=== PATIENT | female | born 2000 | race Caucasian/White ===

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

== ENCOUNTER 2024-10-21 10:34 | Outpatient (CLI) | payer OTHER, MEDICAID, SELFPAY ==
--- OUTSIDE RECORDS SUMMARY | 2024-10-21 10:45 | XMS_ITS | Clinical Summary ---
Author Organization [facility] Address [address] [place] [address] Phone Care Team Providers Care Event Sales Manager Name Role Phone Luke Olson MD Primary Care Provider [phone] Allergies No known active allergies Medications hydrOXYzine HCl (ATARAX) 25 mg tablet Take 1 Tablet (25 mg) by mouth 2 times daily. 60 Tablet 02/09/2019 Active Active Problems Problem Noted Date Diagnosed Date Marijuana use 02/02/2019 Intentional drug overdose 02/02/2019 Marijuana use 02/02/2019 Severe episode of recurrent major depressive disorder, without psychotic features 04/27/2018 Encounter for routine child health examination without abnormal findings 04/27/2018 Depression Family History Medical History Relation Name Comments Diabetes Father Healthy Mother Relation Name Status Comments Father Alive Mother Alive Social History Tobacco Use Types Packs/Day Years Used Date Smoking Tobacco: Never Smokeless Tobacco: Never Alcohol Use Standard Drinks/Week Comments No 0 (1 standard drink = 0.6 oz pur e alcohol) Adolescent Education Answer Date Record ed Getting School Help Needed Not on file 09/28 Comments Unknown Sex and Gender Information Value Date Recorded Sex Assigned at Not on file Legal Sex Female 5:28 PM ORACLE SECURITY CONSULTANT Gender Identity Not on file Sexual Orientation Not on file Last Filed Vital Signs Vital Sign Reading Time Taken Comments Blood Pressure 111/59 02/08/2019 8:14 AM ORACLE SECURITY CONSULTANT Pulse 91 02/08/2019 8:14 AM ORACLE SECURITY CONSULTANT Temperature 36.9 C (98.5 F) 02/08/2019 8:14 AM ORACLE SECURITY CONSULTANT Respiratory Rate 16 02/08/2019 8:14 AM ORACLE SECURITY CONSULTANT Oxygen Saturation 100% 02/08/2019 8:14 AM ORACLE SECURITY CONSULTANT Inhaled Oxygen Concentration - - Weight 43.9 kg (96 lb 12.8 oz) 02/04/2019 8:14 A M ORACLE SECURITY CONSULTANT Height 160 cm (5' 3) 02/03/2019 3:10 PM ORACLE SECURITY CONSULTANT Body Mass Index 17.15 02/03/2019 3:10 PM ORACLE SECURITY CONSULTANT Plan of Treatment Health Maintenance Due Date Last Done Comments CHLAMYDIA SCREENING (ANNUAL) 11-24 YEARS 2013 DTAP/TDAP/TD VACCINES (5 - Tdap) 2013 01/08/2005, 07/03/2003, 05/02/2003, Additional history exists HPV VACCINES (1 - 3-dose series) 2017 CERVICAL CANCER SCREENING 12/30/2023 HPV/Cotest (21-29) 12/30/2023 PAP SMEAR 12/30/2023 INFLUENZA VACCINE (#1) 2024 7, 01/08/2005, 02/07/2004, Additional history exists HEPATITIS B VACCINES Completed 01/08/2005, 05/02/2003, 03/01/2003 Insurance [employer] BLUE [employer]/TRUE BLUE PPO [employer]/TRUE BLUE PPO BCBS BLUE ACCESS/TRUE BLUE PPO Advance Directives For more information, please contact: [phone] * Full Code (Latest Code Status on File) Date Activated Date Inactivated Comments 02/03/2019 8:03 PM 02/08/2019 6:57 PM * Full Code Date Activated Date Inactivated Comments 04/27/2018 12:13 AM 04/30/2018 4:34 PM Care Teams Event Sales Manager Relationship Specialty Start Date End Date Luke Olson MD PCP - General Pediatrics 02/02/19
--- OUTSIDE RECORDS SUMMARY | 2024-10-21 10:45 | XMS_ITS | Continuity of Care Document ---
Author Name [facility] Organization [facility] Care Team Providers Care Electrician Second Name Role Phone [facility] Unavailable Unavailable Procedures Combined list of: 1) Procedures from [facility] facilities [facility], not all [place] non-surgical procedures are included; 2) All procedures from the Department of [facility] facilities. Procedure Procedure Type Code Date Perfomer Comments Sourc e No data available for this section Ambulatory P harmacy Social History Combined list of available smoking, tobacco, and other social history from Department of Defense and Veterans Affairs facilities. Social History Type Response Date Comment Sourc e Sex Representation Female (finding) 09/08/2023 Unknown Organization Sexual Orientation Ambula tory Pharmacy Gender identity Ambulator y Pharmacy Assessment and Plan Combined list of future care activities from Department of Defense and Veterans [facility] facilities (e.g., assessment and plan notes, appointments, orders, and referrals). Additional future care activities may be listed in the Plan of Care section. Result Assessment and Plan Date Source Assessment and Plan No data available for this section 10/21/2024 Ambulatory Pharmacy Functional Status Combined list of recent functional and cognitive assessments recorded at Department of Defense and [facility] Affairs ([place]).[facility] Functional [place] Measurement (FIM) Scale: 1 = Total Assistance (Subject = 0% +), 2 = Maximal Assistance (Subject = 25% +), 3 = Moderate Assistance (Subject = 50% +), 4 = Minimal Assistance (Subject = 75% +), 5 = Supervision, 6 = Modified Montcalm (Device), 7 = Complete [place]m (Timely, Safely). Assessment Date/Time Source Assessment Type Assessment Skill Assessment Score Assessment Details No data available for this section
[2024-10-21 10:57] VITALS: BP 111/70; PULSE 86
[2024-10-21 11:00] VITALS: BP 110/64; PULSE 90
[2024-10-21 11:30] VITALS: BP 110/71; PULSE 87
[2024-10-21 11:31] VITALS: BP 110/71; PULSE 87
[2024-10-21 11:44] LABS: OBXCEM ROM Plus Negative (Negative)
== END 2024-10-21 11:45 | disposition home or self-care (01) ==
LOC: ANHOBOP 10:42 → ANHOBPP 10:46
PROVIDERS: PCP Family Medicine; Visit Provider Obstetrics & Gynecology
DX: O41.8X90 Other specified disorders of amniotic fluid and membranes, unspecified trimester, not applicable or unspecified (principal)
CPT/HCPCS: 59025; 84112; 99199

== ENCOUNTER 2024-11-13 05:10 | Observation (INO) | payer OTHER, MEDICAID, SELFPAY ==
[2024-11-13 05:25] VITALS: BP 118/75; PULSE 86
[2024-11-13 05:30] VITALS: BP 122/72; PULSE 92
[2024-11-13 05:39] VITALS: BMI 24.4
--- NOTE | 2024-11-13 05:40 | OBADM ---
This patient, Dimple Henry, admitted to the OB room Labor/Delivery/Recovery 105 for observation. Patient/family oriented to hospital policies and general routines including ID bracelet, bed and alarms, visiting hours, pain management, procedures, bathroom and other care routines, personal items, smoking policy, room service/diet, and visiting hours. Patient/Family are encouraged to report perceived risks to care and to ask questions if they do not understand what they are told or what they should do.
[2024-11-13 05:45] VITALS: BP 114/71; PULSE 90
[2024-11-13 07:49] LABS: Add Urine Microscopic? YES; Appearance Urine Clear (Clear); Glucose Urine UA Negative (Negative); Leukocyte Esterase Ur 1+ LEU/UL (Negative); Need Manual Microscopic Reviewed; Nitrate Urine Negative (Negative); Non Pathogenic Casts 0-2; Specific Grav Ur 1.011 (1.001-1.035)
[2024-11-13 08:11] VITALS: BMI 24.5
--- NOTE | 2024-11-15 09:43 | PM.OBTRLD ---
OB - Triage/Final Diagnosis Visit Information Comments/Additional reasons for admission: I have assessed the risk for this patient, Dimple Henry, and determined that she would benefit from observation care. Evaluation Laboratory results: Laboratory Tests 11/13/24 07:16 Urine Color Yellow Urine Appearance Clear Urine pH 7.0 Ur Specific [place] 1.011 Urine Protein Negative Urine Glucose (UA) Negative Urine Ketones Negative Ur Blood (Man) 2+ H Urine Nitrate Negative Urine Bilirubin Negative Urine Urobilinogen 0.2 Add Ur Microanalysis Reviewed Leukocyte Esterase Rfl 1+ H Urine RBC 0-2 Urine WBC 0-5 Ur Squamous Epith Cells Occasional Urine Bacteria None seen Urine Casts 0-2 Final Diagnosis (1) Irregular contractions: Code(s): O47.9 - False labor, unspecified Status: Acute
== END 2024-11-13 08:05 | disposition home or self-care (01) ==
PROVIDERS: Obstetrics & Gynecology; Admitting Provider Obstetrics & Gynecology; PCP Family Medicine; Visit Provider Obstetrics & Gynecology
DX: O47.1 False labor at or after 37 completed weeks of gestation (principal); Z3A.39 39 weeks gestation of pregnancy
CPT/HCPCS: 81001; 87086; G0378; G0379

== ENCOUNTER 2024-11-13 21:52 | Inpatient (IN) | payer OTHER, MEDICAID, SELFPAY ==
[2024-11-13] VITALS (7 sets, daily range): BP systolic 113–132; BP diastolic 69–91; PULSE 83–95; BMI 23.4
--- OUTSIDE RECORDS SUMMARY | 2024-11-13 22:23 | XMS_ITS | Clinical Summary ---
Author Organization [facility] Address [address] [place] [address] Care Team Providers Care Kick Boxer Name Role Phone Luke Olson MD Primary Care Provider [phone] Source Comments [facility],non-owned Affiliates and Associated Physician Practices is amultiple site organization consisting of ambulatory clinics and hospital sitesin [place], [place], [place] and [place]. This disclosure is being madepursuant to the Care Everywhere program and may not contain all information available regarding this patient. Last updated 17.[facility] [employer] Allergies No known active allergies Medications * This document contains information received from the source organization and may not represent a complete record from that organization. * Be aware that medications may not be up to date on this document. Alwaysverify current medications with the patient. fluticasone propionate (FLONASE) 50 MCG/ACT nasal spray Davis 2 Sprays into each nostril once daily 1 Bottle 1 7 Active cyanocobalamin (VITAMIN B-12) 100 MCG tablet Take 100 mcg by mouth once daily Active Cholecalciferol (VITAMIN D3) 400 UNITS tablet Take 400 Units by mouth once daily Active NEXPLANON 68 MG implant 8 Active ferrous gluconate 324 (38 FE) MG tablet Take 324 mg by mouth once daily Active desogestrel-eth inyl estradiol (ORTHO-CEPT; DESOGEN; APRI; SOLIA; RECLIPSEN) 0.15-30 MG-MCG tabletIndicatio ns:Abnormal Uterine Bleeding Take 1 tablet by mouth once daily Reasons: Symptomatic Variation from Normal Periods 3 packet 0 Active Active Problems Problem Noted Date Diagnosed Date Depression 04/25/2019 Assessment & Plan (04/25/2019 11:11 AM BUNCH BREAKER MACHINE OPERATOR): Recent suicide attempt in 01/2019, hospitalized at [facility] for 1 week. Not currently on medication. Has therapist but haven't seen in 2 months. Denies SI, current self harm, or suicide plan. Weight stable. Mom and patient report improvement in mood and functioning. Patient does endorse ongoing anxiety/depression but much improved. Plan Encourage therapist regularly Discussed healthy eating habits and coping mechanisms Routine screening for STI (sexually transmitted infection) 04/13/2018 Dysmenorrhea 07/13/2017 Assessment & Plan (04/25/2019 11:09 AM BUNCH BREAKER MACHINE OPERATOR): Ongoing increased break through bleeding, lasts 2 weeks bleeding per month. Previously improved while combining Nexplanon and OCPs. Plan Plan to restart OCPs with Nexplanon Monitor for break through bleeding Nexplanon insertion 07/13/2017 Assessment & Plan (07/13/2017 9:44 AM CDT): Here for nexplanon insertion. Negative test today. Reports compliance with OCPs. LMP onset today. Follow-up in 2-3 months. Dysphagia 11/07/2016 Resolved Problems Problem Noted Date Diagnosed Date Resolved Date Infectious mononucleosis 11/07/201603/2019 Assessment & Plan (11/09/2016 6:57 AM CDT): Assessment: Pt with recent diagnosis of infectious mononucleosis with recent systemic steroid administration. Although systemic steroids can be very helpful short term in decreasing inflammation secondary to mononucleosis, they have significant side effects. Plan: -d/c prednisone - consider flonase (might be helpful in topical effects and very unlikely to be harmful) -contact isolation -avoid contact sports - monitor for signs/symptoms of airway obstruction - Vitals q8h - Regular diet as tolerated - ENT following, appreciate recommendations - Recommend holding Prednisone for 24 hours to monitor for improvement off of steroids (to prove antibiotic susceptibility) - Ibuprofen scheduled for pain - Tylenol, oxy, morphine for breakthrough Assessment & Plan (11/08/2016 1:43 PM CDT): Assessment: Diagnosed at PCP's office. Atypical lymphocytes on CBC at admission. Concern for superimposed bacterial infection leading to phlegmon development. Plan: - Regular diet as tolerated - ENT following, appreciate recommendations - Recommend holding Prednisone for 24 hours to monitor for improvement off of steroids (to prove antibiotic susceptibility) - Ibuprofen scheduled for pain - Tylenol, oxy, morphine for breakthrough Tonsillitis, phlegmonous 11/07/201603/2019 Assessment & Plan (11/09/2016 6:52 AM CDT): Assessment: Dimple Mendez is a 15yo girl with hx of recurrent tonsillitis and recent diagnosis of infectious mononucleosis presenting with progressively worsening dysphagia and left neck swelling. Dx studies studies significant for bilateral tonsilitis, cervical lymphadenopathy, and a left palatine tonsil phlegmon. Bacterial superinfection most likely with considerations including GAS, staph aureus, oral anaerobes. Polymicrobial infection also possible. Infectious mononucleosis alone also a consideration. Pt at risk for abscess formation with requirement for surgical incision and drainage. She is also at risk for worsening airway obstruction. Pt followed by ENT and hospitalized due to need for IV antibiotics, IVF, pain medication, and possible surgical intervention. Plan: - Continue IV Clindamycin 13mg/kg TID, convert to oral when showing clinical improvement for 14 day total course. - Pt pt does not improve, would consider clindamycin resistant staph aureus (30% of MRSA marlen well as about 20% of other Staph per antibiogram) and addition of vancomycin or linezolid. Would also consider abscess formation - To follow up in ENT clinic to discuss potential tonsillectomy - MIVF, decrease as PO intake improves - Ibuprofen scheduled Q6hrs; Tylenol, oxycodone, morphine prn for pain. If pt continues to have significant pain, plan on scheduling tylenol and consider scheduling oxycontin - Throat lozenges prn, chloraseptic prn - Encourage fluids - Zofran 4mg q6 prn for nausea Assessment & Plan (11/08/2016 1:49 PM CDT): Assessment: Dimple Mendez is a 15yo female with tonsillitis complicated by concern for phlegmon/developing abscess. She is +[place] at her PCP's office with high atypical lymphocytes on CBC on admission, but worsening status, unilateral swelling, and fluid collection seen on CT raises concern for secondary bacterial infection. Patient feels she is improving on antibiotics but concomitant treatment with steroids may cloud the picture. Clindamycin provides empiric coverage for Group A Streptococcus, S. Aureus, and respiratory anaerobes. It is worth noting that about 30% of MRSA can be resistant to Clindamycin, as well as about 20% of other Staph. If she were to fail to improve on Clindamycin within 24-48 hours, would consider adding to antibiotic regime to provide coverage against resistant Staph, such as Linezolid which provides near 100% Staph coverage, including MRSA, per antibiogram. Plan: - Continue IV Clindamycin 13mg/kg TID, convert to oral when showing clinical improvement for 14 day total course - Reg diet as tolerated - MIVF, decrease as PO intake improves - ENT following, appreciate recommendations - Recommend holding prednisone to evaluate for improvement off steroids - Ibuprofen scheduled Q6hrs; Tylenol, oxycodone, morphine prn for pain - Throat lozenges prn, chloraseptic prn - Encourage fluids - Zofran 4mg q6 prn for nausea - Vitals q8h - To follow up in ENT clinic to discuss potential tonsillectomy Assessment & Plan (11/07/2016 11:21 PM CDT): Assessment: Dimple Mendez is a 15yo female with recurrent tonsillitis presenting with tonsillitis complicated by concern for phlegmon/developing abscess. She has been tested positive for [place] at her PCP's office (consistent with high atypical lymphocytes on CBC), but worsening status and fluid collection seen on CT raises concern for secondary bacterial infection. Clindamycin would provide empiric coverage for Group A Streptococcus, S. Aureus, and respiratory anaerobes. It is worth noting that about 30% of MRSA can be resistant to Clindamycin, as well as about 20% of other Staph. If she were to fail to improve on Clindamycin within 24-48 hours, would consider adding to antibiotic regime to provide coverage against resistant Staph, such as Linezolid which provides near 100% Staph coverage, including MRSA, per antibiogram. Plan: - Admit to Pediatrics, Dr. Campbell - Start IV Clindamycin 13mg/kg TID, convert to oral when showing clinical improvement for 14 day total course - Reg diet as tolerated, NPO at midnight with mIVF - ENT following, agree to reevaluate tomorrow - Prednisone 50mg daily - Tylenol prn for mild pain - Oxycodone 5mg PO q4h for moderate pain - Morphine 2.5mg IV q4h for severe pain - Zofran 4mg q6 prn for nausea - Vitals q8h - To follow up in ENT clinic to discuss potential tonsillectomy Immunizations Immunization Administration Dates Next Due INFLUENZA VACCINE, QUADR. (F LUZONE; FLULAVAL; FLUARIX; AFLURIA QUADRIVALENT; 6MO+), 0.5 ML (IIV4) 11/09/2016 Family History Medical History Relation Name Comments Diabetes Father Depression Mother Menstrual issues Sister DUB Relation Name Status Comments Father Mother Sister Social History Tobacco Use Types Packs/Day Years Used Date Smoking Tobacco: Former Cigarettes Q uit: 06/23/2018 Smokeless Tobacco: Never Alcohol Use Standard Drinks/Week Comments Not Currently 0 (1 standard drink = 0.6 oz pure alcohol) tried once, did not like it, does not use etoh Comments No Sex and Gender Information Value Date Recorded Sex Assigned at Not on file Legal Sex Female 1:30 PM CDT Gender Identity Not on file Sexual Orientation Not on file Last Filed Vital Signs Vital Sign Reading Time Taken Comments Blood Pressure 110/70 04/25/2019 9:45 AM BUNCH BREAKER MACHINE OPERATOR Pulse 76 05/04/2017 9:59 AM CDT respiration 20 Temperature 36.7 C (98 F) 01/26/2017 12:37 PM BUNCH BREAKER MACHINE OPERATOR Respiratory Rate 20 01/26/2017 2:40 PM BUNCH BREAKER MACHINE OPERATOR Oxygen Saturation 96% 01/26/2017 2:4 0 PM BUNCH BREAKER MACHINE OPERATOR Inhaled Oxygen Concentration - - Weight 51.1 kg (112 lb 10.5 oz) 04/25/2019 9:45 AM BUNCH BREAKER MACHINE OPERATOR Height 161 cm (5' 3.39) 04/25/2019 9:4 5 AM BUNCH BREAKER MACHINE OPERATOR Body Mass Index 19.71 04/25/2019 9:45 AM BUNCH BREAKER MACHINE OPERATOR Plan of Treatment Health Maintenance Due Date Last Done Comments HIV SCREENING 2017 HPV VACCINE (1 - 3-dose series) 2017 MENINGOCOCCAL (Group B) VACCINE SHARED DECISION-MAKING (1 of 2 - Standard) 2018 CHLAMYDIA/GONORRHEA SCREENING 04/13/2019 04/13/2018, 05/04/2017 HEPATITIS C SCREENING 12/24/2020 DTAP/TDAP/TD VACCINES (1 - Tdap) 2021 HEPATITIS B VACCINE (1 of 3 - 19+ 3-dose series) 2021 DEPRESSION SCREENING 02/24/2024 COVID-19 VACCINE (1 - season) 2024 INFLUENZA VACCINE (#1) 2024 7, 01/08/2005, 02/07/2004, Additional history exists ZOSTER VACCINE (1 of 2) 2052 HIB VACCINE Aged Out No longer eligi ble based on patient's age to complete this topic MENINGOCOCCAL GROUPS A/C/Y/W VACCINE Aged Out No longer eligible based on patient's age to complete this topic PNEUMOCOCCAL VACCINE Aged Out No long er eligible based on patient's age to complete this topic Procedures Procedure Name Priority Date/Time Associated Diagnosis Comments CHLAMYDIA + GC AMPLIFIED PROBE Routine 04/13/2018 4:30 PM BUNCH BREAKER MACHINE OPERATOR Routine screening for STI (sexually transmitted infection) from Last 3 Months or Most Recently Relevant to Health Maintenance Results * CHLAMYDIA + GC AMPLIFIED PROBE (04/13/2018 4:30 PM BUNCH BREAKER MACHINE OPERATOR) Chlamydia Amplified Probe Negative Negative 04/14/2018 11:45 AM BUNCH BREAKER MACHINE OPERATOR [facility] GC Amplified Probe Negative Negative 04/14/2018 11:45 AM BUNCH BREAKER MACHINE OPERATOR [facility] Urine URINE / Unknown Collection / Unknown 04/13/2018 4:30 PM BUNCH BREAKER MACHINE OPERATOR 04/13/2018 4:48 PM BUNCH BREAKER MACHINE OPERATOR Narrative [facility] - 04/14/2018 11:45 AM BUNCH BREAKER MACHINE OPERATOR Results based on detection/no detection of ribosomal RNA by amplified method. us Yessica Harrison MD LAB - MICROBIOLOGY ORD ERABLES Final Result [facility] [address] [place], [place] [address], [facility] [phone] from Last 3 Months or Most Recently Relevant to Health Maintenance Insurance ANTHEM ANTHEM Advance Directives * Full Code (Latest Code Status on File) Date Activated Date Inactivated Comments 11/07/2016 6:22 PM 11/09/2016 12:18 PM Care Teams Kick Boxer Relationship Specialty Start Date End Date Luke Olson MD [address] [place] [id number] PCP - General Pediatrics 09/07/15
--- OUTSIDE RECORDS SUMMARY | 2024-11-13 22:23 | XMS_ITS | Clinical Summary ---
Author Organization [facility] Address [address] [place] [address] Phone Care Team Providers Care Grid Inspector Name Role Phone Luke Olson MD Primary Care Provider [phone] Allergies No known active allergies Medications hydrOXYzine [...] on file Legal Sex Female 5:28 PM MANAGER IMAGING Gender Identity Not on file Sexual Orientation Not on file Last Filed Vital Signs Vital Sign Reading Time Taken Comments Blood Pressure 111/59 02/08/2019 8:14 AM MANAGER IMAGING Pulse 91 02/08/2019 8:14 AM MANAGER IMAGING Temperature 36.9 C (98.5 F) 02/08/2019 8:14 AM MANAGER IMAGING Respiratory Rate 16 02/08/2019 8:14 AM MANAGER IMAGING Oxygen Saturation 100% 02/08/2019 8:14 AM MANAGER IMAGING Inhaled Oxygen Concentration - - Weight 43.9 kg (96 lb 12.8 oz) 02/04/2019 8:14 A M MANAGER IMAGING Height 160 cm (5' 3) 02/03/2019 3:10 PM MANAGER IMAGING Body Mass Index 17.15 02/03/2019 3:10 PM MANAGER IMAGING Plan of Treatment Health Maintenance Due Date Last Done Comments CHLAMYDIA SCREENING (ANNUAL) 11-24 YEARS 2013 DTAP/TDAP/TD VACCINES (5 - Tdap) 2013 01/08/2005, 07/03/2003, 05/02/2003, Additional history exists HPV VACCINES (1 - 3-dose series) 2017 CERVICAL CANCER SCREENING 12/30/2023 HPV/Cotest (21-29) 12/30/2023 PAP SMEAR 12/30/2023 INFLUENZA VACCINE (#1) 2024 7, 01/08/2005, 02/07/2004, Additional history exists HEPATITIS B VACCINES Completed 01/08/2005, 05/02/2003, 03/01/2003 Insurance [employer] BLUE [employer]/TRUE BLUE PPO [employer]/TRUE BLUE PPO [employer] BLUE ACCESS/TRUE BLUE PPO Advance Directives For more information, please contact: [phone] * Full Code (Latest Code Status on File) Date Activated Date Inactivated Comments 02/03/2019 8:03 PM 02/08/2019 6:57 PM * Full Code Date Activated Date Inactivated Comments 04/27/2018 12:13 AM 04/30/2018 4:34 PM Care Teams Grid Inspector Relationship Specialty Start Date End Date Luke Olson MD PCP - General Pediatrics 02/02/19
[2024-11-13] MEDS: AMPICILLIN SODIUM 2 GM in SODIUM CHLORIDE 0.9% IV 100 ML 200 ML IVPB (23:00)
[2024-11-13] MEDS: LACTATED RINGERS 1,000 ML 125 ML IV CONT (23:00)
[2024-11-13 23:42] LABS: Hematocrit 32.4 % (37.0-47.0); Hemoglobin 10.3 g/dL (12.0-15.0); Immature Granulocyte Percent A 0.5 % (0-0.5); Lymphocytes Absolute Auto 1.72 K/mm3 (0.9-3.2); Mean Corpuscular HGB Conc 31.8 g/dl (32-36); Mean Corpuscular Hemoglobin 26.1 pg (26-34); Mean Corpuscular Volume 82.0 fl (80-100); Nucleated Red Blood Cells Absolute Auto 0.000 K/mm3 (0.0-0.012); Nucleated Red Blood Cells Perc 0.0 % (0.0-0.2); Platelet Count Result 310 k/mm3 (150-375); Red Blood Count 3.95 M/mm3 (4.2-5.4); White Blood Count 11.0 K/mm3 (4.5-10.0)
[2024-11-14] VITALS (148 sets, daily range): BP systolic 98–154; BP diastolic 52–97; PULSE 51–124; RESP 16–20; TEMP 36.5–37.3; O2SAT 80–100
--- NOTE | 2024-11-14 00:03 | P.PNAN_ITS ---
Anes - Eval Pre Procedure Procedure: Labor epidural Date/Time: 11/14/24 00:03 Surgeon: Mario Preop Diagnosis: pain during labor Pre Op Diagnosis: Contractions Patient Data Age: 23 Gender: F Height: 1.6 m Weight: 60 kg Last Vital Signs Pulse 95 11/14/24 00:00 BP 118/66 11/14/24 00:00 Home Medications ?Medication ?Instructions ?Recorded ?Confirmed ?Type bolvmkskqz-yxufsjqosvkel-aqbqaprv cap 11/13/24 Histor y 50 mg-300 mg-40 mg capsule vit no.95-ferrous 1 tablet PO DAILY 11/13/24 11/13/24 History fumarate 28 mg-folic acid 800 mcg tablet () Laboratory Tests 11/13/24 23:26 WBC 11.0 H K/mm3 (4.5-10.0) RBC 3.95 L M/mm3 (4.2-5.4) Hgb 10.3 L g/dL (12.0-15.0) Hct 32.4 L % (37.0-47.0) MCV 82.0 fl (80-100) MCH 26.1 pg (26-34) MCHC 31.8 L g/dl (32-36) RDW 12.6 % (11.5-14.5) Plt Count 310 k/mm3 (150-375) MPV 9.4 fl (7.4-10.4) Immature Gran % (Auto) 0.5 % (0-0.5) Neut % (Auto) 74.1 H % (45.5-73.1) Lymph % (Auto) 15.6 L % (18.3-44.2) [place] % (Auto) 9.1 H % (2.6-8.5) Eos % (Auto) 0.5 % (0-4.4) Baso % (Auto) 0.2 % (0.2-1.2) Lymph # (Auto) 1.72 K/mm3 (0.9-3.2) [place] # (Auto) 1.0 H K/mm3 (0.1-0.6) Eos # (Auto) 0.1 K/mm3 (0-0.3) Baso # (Auto) 0.0 K/mm3 (0.0-0.1) Abs Immat Gran (auto) 0.05 H K/mm3 (0.00-0.031) Absolute Neuts (auto) 8.2 H K/mm3 (1.3-6.7) Absolute Nucleated RBC 0.000 K/mm3 (0.0-0.012) Nucleated RBC % 0.0 % (0.0-0.2) Patient hx anesthesia problems: none Family hx anesthesia problems: none Results Review: All pre-operative results and documents have been reviewed as part of the pre- operative evaluation. [facility] Social History Social History Smoking status: Former smoker Tobacco type: e-cigarettes/vaping Smoking end date: 11/14/23 Lack of Transportation: No Lack of Food: Never True Current Housing: I Have Housing Concerned About Future Housing: No Difficulty Paying Gas/Electric Bills: No Difficulty Paying for Meds: No Currently Unemployed: No Education: High School Diploma/GED Difficulty w/ Childcare or Family Care: No Spiritual care concerns: No Exam Day of Procedure 11/14/24 00:03
[2024-11-14 00:16] LABS: Syphilis IgG/IgM Antibody Non-Reactive (Nonreactive)
[2024-11-14] MEDS: LACTATED RINGERS 1,000 ML 125 ML IV CONT ×2 (02:12→06:20)
[2024-11-14] MEDS: AMPICILLIN SODIUM 1 GM in SODIUM CHLORIDE 0.9% IV 50 ML 100 ML IVPB ×2 (03:37→07:59)
[2024-11-14] MEDS: OXYTOCIN 30 UNITS/NS 500 ML 30 UNITS/500 ML BAG 999 UNITS IV CONT (08:39)
[2024-11-14] MEDS: OXYTOCIN 30 UNITS/NS 500 ML 30 UNITS/500 ML BAG 125 UNITS IV CONT (09:12)
[2024-11-14] MEDS: ACETAMINOPHEN 325 MG TABLET 650 MG PO (10:36)
--- NOTE | 2024-11-14 11:43 | PC.NURSE ---
Patient transferred to post room #287 via wheelchair. Support person present. Oriented to unit, room, information board, rooming in, admission packet and security measures. Patient verbalizes understanding.
--- NOTE | 2024-11-14 12:00 | PC.NURSE ---
Patient requested formula bottles when admitted to the unit. Enfamil was taken to patient and she states that she doesn't know if baby 'got anything' at the first . Educated patient on feedings in the first 24 hours of life and about normal behavior. Patient is supported to give formula to baby if desired and she was educated on the appropriate amounts to feed. She is also advised that stimulating her breasts every 3 hours is required for establishing an abundant milk supply. Patient knows that she can do this by putting baby to breast or pumping. Patient agrees to call out for any needed feeding assistance. Primary RN updated.
[2024-11-14] MEDS: IBUPROFEN 600 MG TABLET PO ×2 (12:30→22:10)
--- NOTE | 2024-11-14 13:10 | PM.OBPRVD ---
OB - Vaginal Delivery Note Procedure Delivery date: 11/14/24 Induction method: None Delivery monitor: External FHT and External Uterine Route of delivery: Episiotomy description: None Laceration Description: Perineal - 1st Degree Delivery repair: vicryl Specimen: No Quantitative Blood Loss (ml): 200 Anesthesia type: Epidural Disposition: Floor Complications: No immediate complications Narrative: See H&P and notes for details on patient's admission and labor. She progressed to complete cervical dilation and at the appropriate time began pushing. With adequate expulsive efforts by the mother, the baby's head was delivered without difficulty. Nuchal cord was not present. The baby's right shoulder was anterior and delivered under the pubic symphysis without difficulty. The posterior shoulder and the rest of the baby delivered without difficulty. The umbilical cord was doubly clamped and cut after 60 seconds of delayed cord clamping. Care of the infant was then assumed by the nursing staff. Baby Date of : 11/14/24 Gestational Age by Date: 38 Infant gender: Male presentation: vertex position: Left Occiput Anterior Placenta delivery description: Expressed Cord Vessel Description: 3 Vessels and Delayed Cord Clamping
--- NOTE | 2024-11-14 13:20 | PC.NURSE ---
1320: Patient called out for feeding assistance. She was unable to get infant latched. He was swaddled when I entered the room so we removed some of the blanket and attempted to rouse him to feed. He was very sleepy and we were unable to elicit a gape or latch. Mom is encouraged to hold baby skin to skin for 15 minutes and then we will attempt to feed again. Primary RN updated. 1350: Patient holding baby skin to skin but he did not awaken. We took him from mom's chest and stimulated him to wake. He did cry and thrust his tongue a few times, but when placed at breast he gave minimal effort. Mom uses cradle and cross cradle hold with assistance from RN to hold infant's head. Baby gave a few attempts to gape but would not suck when the nipple was in his mouth. When stimulated he would fuss and then sleep. Mom is offered the option to wait a little longer and attempt again or to give formula if she desires. She would like to wait and try again. Primary RN updated.
--- NOTE | 2024-11-14 15:10 | PC.NURSE ---
Assisted patient to attempt . Baby was still sleeping and mom was educated on checking infant blood glucose if he has not eaten in 6 hours. Patient agrees to try to feed him again now. Baby is more alert after a diaper change and gives some good effort to latch. He is a tongue sucker and needs a lot of encouragement to open wide. He has given some good suckles when latched but mostly he holds the nipple in his mouth without sucking. We tried both breasts and mom used breast compression and hand expression to get some drops of colostrum in baby's mouth. Encouraged mom that he is looking more interested now than the last time we tried and that he may wake up soon and decide he wants to eat. She is continuing to hold him near the breast to offer it when he seems ready. Primary RN updated.
[2024-11-15 05:22] LABS: Hematocrit 28.5 % (37.0-47.0); Hemoglobin 8.8 g/dL (12.0-15.0)
[2024-11-15 07:50] VITALS: BP 118/76; PULSE 92; RESP 16; TEMP 36.8; O2SAT 100
[2024-11-15] MEDS: MULTIVIT/MIN/PREN/FOL AC/IRON TABLET 1 TAB PO (08:25)
[2024-11-15] MEDS: DOCUSATE SODIUM 100 MG CAPSULE PO ×2 (08:25→17:26)
[2024-11-15] MEDS: IBUPROFEN 600 MG TABLET PO ×2 (08:31→17:26)
--- NOTE | 2024-11-15 09:52 | P.PNOB_ITS ---
OB - PN: Subj Subjective Date/time seen: 11/15/24 09:52 Interval history: PPD#1 s/p Doing well, pain controlled Voiding without issue Mood ok, having some up and down emotions Tolerating general diet OB - PN: Obj Data Labs 11/15/24 03:12 Labs: Laboratory Results - last 24 hr 11/15/24 03:12 Hgb 8.8 L Hct 28.5 L OB - PN A/P Assessment and Plan (1) (spontaneous vaginal delivery): Code(s): O80 - Encounter for full-term uncomplicated delivery Status: Acute Plan day: 1 Plan: routine care Time Spent With Patient Time: Total time spent is greater than 50% in coordination of care (as documented) at patient's floor/unit and/or counseling patient: Review of Systems 2 Review of Systems: All systems reviewed & are unremarkable except as noted in HPI and below Exam 2 Const: General: comfortable and no acute distress O rientation/consciousness: patient oriented x3 Resp: Effort & Inspection: normal respiratory effort
--- NOTE | 2024-11-15 12:58 | PCCCNOTE ---
Care Coordination. Patient referred to CC for suicide attempt during and being tearful here. Spoke with pt. and FOB at bedside. Pt. reports history of depression, but reports suicide attempt was a long time ago, not during this . She has not been able to take antidepressant during . OBGYN plans to see pt. about a week after dc to checkin on post . Pt. reports yesterday she was emotional, but feeling good today after sleep. Pt. reports having good family support and plans to return home with her family at [place] with baby. She reports having all necessary baby care items and has been in contact with WIC. Provided pt. with education and discussion around post including resources and crisis hotelines for it. Provided pt. with counseling and baby care items as well. Provided baby basket full of baby care items. No further CC needs identified.
--- NOTE | 2024-11-15 14:06 | WPDANLDPN2 ---
Anes-Prog Note L&D Date/Time: 11/15/24 14:06 Comfortable throughout: labor and delivery Neuraxial method: epidural Epidural/Spinal procedure site: clean & non-tender Neuro status: Neuro function grossly intact. Cardiovascular status: normal Respiratory status: normal Airway patency: baseline Mental status: baseline Post-Op hydration status: normal Vital Signs: Last Vital Signs Temp 36.8 C 11/15/24 07:50 Pulse 92 11/15/24 07:50 Resp 16 11/15/24 07:50 BP 118/76 11/15/24 07:50 Pulse Ox 100 11/15/24 07:50 O2 Del Method Room Air 11/14/24 19:22 Pain score (VAS): 03/04 Post-procedural complaints: none Patient feedback: Patient satisfied with anesthetic care.
--- NOTE | 2024-11-15 16:37 | PC.NURSE ---
1520. Mom decided that she would like to pump and feed instead of . Breast pump provided due to moms preference. Instructions given on cleaning, care, usage, that there should be no pain, pumping schedule for milk production, collection, and storage of human milk. Patient was assessed for correct placement, flange size, to pump for comfort and nipple stretching/stimulation for adequate milk production every 3 hours (8 times in 24 hours) 1-2 times at night. Parents are encouraged to record the pumping schedule on the feeding sheet.?Mother voiced understanding of the education shared along with mom/baby guide and the pump measurement, flange fit handout for additional resource information. Reported to the Primary RN.
[2024-11-15 19:06] VITALS: BP 114/72; PULSE 89; RESP 16; TEMP 36.8; O2SAT 99
[2024-11-16 07:43] VITALS: BP 128/86; PULSE 91; RESP 18; TEMP 36.7; O2SAT 100
--- NOTE | 2024-11-16 08:19 | PC.NURSE ---
On 11/16/24, the student, Rhonda Washburn, provided care and completed [facility] documentation on this patient. I have reviewed the student's documentation and agree with the findings.
[2024-11-16] MEDS: MULTIVIT/MIN/PREN/FOL AC/IRON TABLET 1 TAB PO (08:52)
[2024-11-16] MEDS: DOCUSATE SODIUM 100 MG CAPSULE PO (08:53)
--- NOTE | 2024-11-16 10:54 | P.PNOB_ITS ---
OB - PN: Subj Subjective Date/time seen: 11/16/24 10:54 Interval history: PPD#2 s/p Doing well, pain controlled Voiding without issue Mood stable Tolerating general diet Ready for discharge home OB - PN: Obj Data Labs 11/15/24 03:12 OB - PN A/P Assessment and Plan (1) (spontaneous vaginal delivery): Code(s): O80 - Encounter for full-term uncomplicated delivery Status: Acute Plan day: 2 Plan: routine care and discharge home Time Spent With Patient Time: Total time spent is greater than 50% in coordination of care (as documented) at patient's floor/unit and/or counseling patient: Review of Systems 2 Review of Systems: All systems reviewed & are unremarkable except as noted in HPI and below Exam 2 Const: General: comfortable and no acute distress O rientation/consciousness: patient oriented x3 Resp: Effort & Inspection: normal respiratory effort
--- NOTE | 2024-11-16 10:56 | PM.OBDSVD ---
DS: Admitting Diagnosis Discharge Date 11/16/24 Admitting Diagnosis labor DS: Discharge Diagnosis Discharge Diagnosis (1) (spontaneous vaginal delivery): Code(s): O80 - Encounter for full-term uncomplicated delivery Status: Acute OB - DS: Summary OB Procedures : None OB Procedures Intrapartum: Spontaneous Vag Delivery OB Procedures: : None Peripartum Data Laceration Description: Perineal - 1st Degree Episiotomy description: None Time Spent with Patient Time attestation: Total time spent providing and/or coordinating discharge services: Discharge Plan Discharge Attending physician on discharge: Tanner Martin Discharging Clinician: Tanner Martin Patient Disposition: Home Activity: may shower, as tolerated and pelvic rest Diet: as tolerated Patient Instructions: Antibiotic Form Patient Language: Tunisian Stand Alone Forms: General Discharge Information Follow-up/Referrals: Tanner Martin MD [Physician, PROCESS TECHNICIAN] - 1 Week Discharge Medications: New ibuprofen 600 mg Tablet 600 mg PO Q6H PRN (Reason: Cramping) Qty: 30 0RF Continued hjtagmxxet-dahdkiseianot-lgwi 50-300-40 mg capsule PNV no.95-ferrous fumarate-FA [] 28 mg iron- 800 mcg tablet 1 tablet PO DAILY Date of admission: 11/13/24 21:52 Primary Care Provider: Becky,Edward Santoyo Admitting Provider: Tanner Martin Attending physician on admission: Tanner Martin Condition: Stable
[2024-11-17 13:57] VITALS: BP 106/67; PULSE 88; RESP 18; TEMP 37.1; O2SAT 98
== END 2024-11-16 14:49 | disposition home or self-care (01) | DRG 807 ==
LOC: ANHLDR 22:21 → ANHOB2 11-14 12:06
PROVIDERS: Admitting Provider Obstetrics & Gynecology; PCP Family Medicine; Visit Provider Obstetrics & Gynecology
DX: O99.824 Streptococcus B carrier state complicating childbirth (principal); Z37.0 Single live birth; Z3A.38 38 weeks gestation of pregnancy; O70.0 First degree perineal laceration during delivery
CPT/HCPCS: 36415; 85014; 85018; 85025; 86593; 86850; 86900; 86901; A9270; J0290; J2590; J2795; J7120